=== PATIENT | male | born 1995 | race Caucasian/White ===

== ENCOUNTER 2022-04-04 21:44 | Emergency (ER) | payer MEDICAID, SELFPAY ==
[2022-04-04] VITALS (9 sets, daily range): BP systolic 111–125; BP diastolic 68–77; PULSE 81–94; RESP 22; TEMP 38.3; O2SAT 88–98; BMI 22.9
[2022-04-04] MEDS: 0.9 % SODIUM CHLORIDE 1000 ml 1,000 ML IV (22:41)
[2022-04-04] MEDS: KETOROLAC 30 MG/ML inj IVP (22:45)
[2022-04-04 22:56] LABS: PCR FLU A Negative PCR FLU A (Negative); PCR FLU B Negative PCR FLU B (Negative); PCR RSV Negative PCR RSV (Negative)
[2022-04-04 22:57] LABS: Basophils Percent Auto 0.5 % (0.0-3.0); Hematocrit 38.8 % (37.0-53.0); Lymphocytes Percent Auto 8.3 % (20-44); Mean Corpuscular HGB Conc 36 gm/dL (32-36); Mean Corpuscular Hemoglobin 31 pg (26-34); Mean Corpuscular Volume 85 fL (80-100); Monocytes Percent Auto 23.8 % (0.0-11.0); Neutrophils Percent Auto 66.4 % (42.0-72.0); Platelet Count* 211 K/uL (140-440); RDW Coefficient of Variation % 11.3 % (11.5-15.5); Red Blood Count 4.58 m/uL (4.30-5.90); Slide Review Reflex No; White Blood Count* 4.21 K/uL (4.50-11.00)
[2022-04-04 23:01] LABS: SARS PCR* POSITIVE SARS-CoV-2 (Negative)
[2022-04-04 23:02] LABS: Albumin* 4.3 g/dL (3.3-5.0); Chloride* 105 mmol/L (96-114); Sodium* 135 mmol/L (135-149)
[2022-04-04 23:03] LABS: Potassium* 3.6 mmol/L (3.6-5.1)
[2022-04-04 23:05] LABS: Aspartate Amino Transferase* 28 U/L (12-35); Bilirubin Direct* 0.1 mg/dL (0.0-0.5); Bilirubin Total* 0.7 mg/dL (0.1-1.5); Carbon Dioxide* 22 mmol/L (20-32); Creatinine* 0.7 mg/dL (0.5-1.5); Est. Creatinine Clearance* 160.42; Estimated Glomerular Filt Rate 131 ml/min; Total Protein* 7.1 g/dL (6.0-8.3)
[2022-04-04 23:06] LABS: Alanine Aminotransferase* 19 U/L (4-50); Alkaline Phosphatase* 65 U/L (40-150); Blood Urea Nitrogen* 12 mg/dL (5-24); Calcium* 8.9 mg/dL (8.4-10.6); Glucose* 94 mg/dL (60-115)
[2022-04-04 23:08] LABS: C Reactive Protein* 1.6 mg/dL (0.5-1.0)
[2022-04-04 23:56] LABS: Appearance Urine Clear (Clear); Bilirubin Urine Negative (Negative); Blood Urine Negative (Negative); Color Urine Yellow (Yellow); Glucose Urine Negative (Negative); Ketones Urine 4+ (Negative); Leukocyte Esterase Urine Trace (Negative); Nitrite Urine Negative (Negative); Protein Urine Trace (Negative)
[2022-04-05 00:01] VITALS: BP 117/71
[2022-04-05 00:03] VITALS: PULSE 101; O2SAT 97
[2022-04-05 00:15] VITALS: PULSE 84; O2SAT 97
[2022-04-05 00:25] LABS: Bacteria Urine Few; Mucus Urine Moderate; RBC Urine 0-2 (0-2); Squamous Epithelial Cell Urine Few (None-Few)
[2022-04-05 01:51] LABS: D Dimer Quantitative* < 0.27 ug/ml (0.00-0.50)
--- NOTE | 2022-04-05 10:00 | ED_ITS ---
HPI - General Adult General Chief complaint: Abdominal Pain Stated complaint: Hot/Cold Sweats,Vomiting,Shaking Legs Time Seen by Provider: 04/04/22 22:21 History of Present Illness HPI narrative: 27-year-old young man here with significant other with complaint of a stabbing lower abdominal pain, further questioning reveals that this is more of a lower back pain, chills, headache, tingling into his legs. Noting it is hard to walk. Generally weak. Did take some acetaminophen at 1 point. Has been pushing fluids and experiencing urinary frequency. No hematuria noted. He does note a grandfather and his father with history of kidney stones. No rashes noted. No focal weakness described. No visual disturbance described. He had the 1st injection in COVID vaccine series. Related Data Previous Rx's Medication Instructions Recorded naproxen sodium 550 mg tablet 550 mg PO Q12H PRN pain #15 tabs 04/05/22 Allergies Allergy/AdvReac Type Severity Reaction Status Date / Time No Known Drug Allergies Allergy Verified 04/04/22 21:58 Review of Systems Status of ROS: Reports: 10 or more systems reviewed and unremarkable except as noted in History and below [facility] Social History Smoking Status: Current every day smoker Do you use any of these nicotine containing products: Vaping Products Second hand tobacco smoke exposure: No How often do you have a drink containing alcohol: monthly or less How many standard drinks containing alcohol do you have on a typical day: 5 or 6 How often do you have six or more drinks on one occasion: Less than monthly AUDIT-C Alcohol total score: 4 Non-prescribed substance use: marijuana (any form) service: No Exam Narrative: Exam Narrative: Seems rather uncomfortable. Eyes are injected as if his been crying. He did arrive moaning in apparent discomfort. In busy ER I do try to see him sooner. Skin is warm and dry otherwise. Oropharynx is sticky. Head is atraumatic. Extensive scarring in place of right ear/pinna. Cranial nerves 2-12 look to be intact. Lungs are clear. Heart rate is elevated in a regular rhythm. There is soreness to percussion in the right flank and across the low back. Abdomen with normoactive bowel sounds flat soft and tender across the suprapubic area. I do not appreciate a sense of fullness though. Extremities are well perfused. Sensation appears to be intact. Const: Vital Signs, click to edit/add: Vital Signs - 24 hr 04/04/22 21:58 04/04/22 22:06 04/04/22 22:51 Temperature 100.9 F H Pulse Rate 81 Pulse Rate [Pulse Oximeter] 92 Respiratory Rate 22 Blood Pressure Blood Pressure [Le ft Upper Arm] 111/69 Pulse Oximetry 97 97 98 Oxygen Delivery Me thod Room Air Room Air 04/04/22 23:00 04/04/22 23:01 04/04/22 23:15 Temperature Pulse Rate 87 86 87 Pulse Rate [Pulse Oximeter] Respiratory Rate Blood Pressure 125/77 Blood Pressure [Le ft Upper Arm] Pulse Oximetry 88 91 93 Oxygen Delivery Me thod 04/04/22 23:30 04/04/22 23:31 04/04/22 23:53 Temperature Pulse Rate 94 89 88 Pulse Rate [Pulse Oximeter] Respiratory Rate Blood Pressure 117/68 Blood Pressure [Le ft Upper Arm] Pulse Oximetry 96 96 97 Oxygen Delivery Me thod 04/05/22 00:01 04/05/22 00:03 04/05/22 00:15 Temperature Pulse Rate 101 H 84 Pulse Rate [Pulse Oximeter] Respiratory Rate Blood Pressure 117/71 Blood Pressure [Le ft Upper Arm] Pulse Oximetry 97 97 Oxygen Delivery Me thod Documenting provider has reviewed patient's vital signs: yes Course Vital Signs Vital signs: Initial Vital Signs Temperature 100.9 F H 04/04/22 21:58 Temperature Source Temporal Artery Scan 04/04/22 21:58 Pulse Rate 92 04/04/22 21:58 Pulse Rhythm 04/04/22 21:58 Respiratory Rate 22 04/04/22 21:58 Blood Pressure 111/69 04/04/22 21:58 Blood Pressure Mean 83 04/04/22 21:58 Blood Pressure Position Supine 04/04/22 21:58 Pulse Oximetry 97 04/04/22 21:58 Oxygen Delivery Method 04/04/22 21:58 Vital Signs Temperature 100.9 F H 04/04/22 21:58 Pulse Rate 92 04/04/22 21:58 Respiratory Rate 22 04/04/22 21:58 Blood Pressure 111/69 04/04/22 21:58 Pulse Oximetry 97 04/04/22 21:58 Oxygen Delivery Method 04/04/22 21:58 Temperature 100.9 F H 04/04/22 21:58 Pulse Rate 84 04/05/22 00:15 Respiratory Rate 22 04/04/22 21:58 Blood Pressure 117/71 04/05/22 00:01 Pulse Oximetry 97 04/05/22 00:15 Oxygen Delivery Method 04/04/22 22:06 Medical Decision Making MDM Narrative Medical decision making narrative: Certainly could be UTI or ureteral stone and colic, vascular disruption resulting in lower extremity symptoms, panic attack, myalgias, nonspecific viral process. Did initiate IV. Was given fluids-normal saline, ketorolac and due to intensity of his initial presentation, ordered for fentanyl with concern of ureteral stone and colic in the differential. Labs showed some lymphocytic suppression and this would be consistent with a positive COVID test. I was moving toward CT scan fairly quickly after initial exam but with re-examination I think myalgias are probably the more significant symptom here as well as possibly some degree of panic attack resulting in his lower extremity symptoms that have been described. Urinalysis did show ketones. The chills that were described given short duration of symptoms I think are unlikely to represent urinary tract infection related to kidney stone/ureteral stone. On departure or nearing departure was asking about pain medication he might rec eive. Inquired as to specifics about what he felt might be helpful ?I do not know; you're the doctor he replied. I discussed NSAIDs including naproxen. Overall appeared improved with treatments as above. Lab Data Lab results reviewed: Yes I reviewed the patient's lab results Labs: Lab Results 04/04/22 04/04/22 04/04/22 Range/Units 22:10 22:30 22:30 WBC 4.21 L (4.50-11.00) K/uL RBC 4.58 (4.30-5.90) m/uL Hgb 14.0 (13.5-17.5) gm/dL Hct 38.8 (37.0-53.0) % MCV 85 (80-100) fL MCH 31 (26-34) pg MCHC 36 (32-36) gm/dL RDW Coeff of Asael 11.3 L (11.5-15.5) % Plt Count 211 (140-440) K/uL Neut % (Auto) 66.4 (42.0-72.0) % Lymph % (Auto) 8.3 L (20-44) % [place] % (Auto) 23.8 H (0.0-11.0) % Eos % (Auto) 0.0 (0.0-7.0) % Baso % (Auto) 0.5 (0.0-3.0) % Neut # (Auto) 2.80 (1.7-7.0) K/uL Lymph # (Auto) 0.30 L (0.90-2.90) K/uL [place] # (Auto) 1.00 H (0.00-0.90) K/UL Eos # (Auto) 0.00 (0.00-0.50) K/uL Baso # (Auto) 0.00 (0.00-0.30) K/uL D-Dimer Quant (PE/DVT) < 0.27 (0.00-0.50) ug/ml Sodium (135-149) mmol/L Potassium (3.6-5.1) mmol/L Chloride (96-114) mmol/L Carbon Dioxide (20-32) mmol/L BUN (5-24) mg/dL Creatinine (0.5-1.5) mg/dL Estimated Creat Clear Estimated GFR ml/min Glucose (60-115) mg/dL Calcium (8.4-10.6) mg/dL Total Bilirubin (0.1-1.5) mg/dL Direct Bilirubin (0.0-0.5) mg/dL AST (12-35) U/L ALT (4-50) U/L Alkaline Phosphatase (40-150) U/L C-Reactive Protein (0.5-1.0) mg/dL Total Protein (6.0-8.3) g/dL Albumin (3.3-5.0) g/dL Urine Color (Yellow) Urine Appearance (Clear) Urine pH (5.0-8.5) Ur Specific Alva (1.000-1.030) Urine Protein (Negative) Urine Glucose (UA) (Negative) Urine Ketones (Negative) Urine Blood (Negative) Urine Nitrite (Negative) Urine Bilirubin (Negative) Urine Urobilinogen (0.2-1.0) Ur Leukocyte Esterase (Negative) Urine RBC (0-2) Urine WBC (0-5) Ur Squamous Epith Cells (None-Few) Urine Bacteria (None) Urine Mucus (None) SARS-CoV-2 (PCR) POSITIVE SARS-CoV-2 A (Negative) Influenza Type A (PCR) Negative PCR FLU A (Negative) Influenza Type B (PCR) Negative PCR FLU B (Negative) RSV (PCR) Negative PCR RSV (Negative) 04/04/22 04/04/22 Range/Units 22:30 23:49 WBC (4.50-11.00) K/uL RBC (4.30-5.90) m/uL Hgb (13.5-17.5) gm/dL Hct (37.0-53.0) % MCV (80-100) fL MCH (26-34) pg MCHC (32-36) gm/dL RDW Coeff of Asael (11.5-15.5) % Plt Count (140-440) K/uL Neut % (Auto) (42.0-72.0) % Lymph % (Auto) (20-44) % [place] % (Auto) (0.0-11.0) % Eos % (Auto) (0.0-7.0) % Baso % (Auto) (0.0-3.0) % Neut # (Auto) (1.7-7.0) K/uL Lymph # (Auto) (0.90-2.90) K/uL [place] # (Auto) (0.00-0.90) K/UL Eos # (Auto) (0.00-0.50) K/uL Baso # (Auto) (0.00-0.30) K/uL D-Dimer Quant (PE/DVT) (0.00-0.50) ug/ml Sodium 135 (135-149) mmol/L Potassium 3.6 (3.6-5.1) mmol/L Chloride 105 (96-114) mmol/L Carbon Dioxide 22 (20-32) mmol/L BUN 12 (5-24) mg/dL Creatinine 0.7 (0.5-1.5) mg/dL Estimated Creat Clear 160.42 Estimated GFR 131 ml/min Glucose 94 (60-115) mg/dL Calcium 8.9 (8.4-10.6) mg/dL Total Bilirubin 0.7 (0.1-1.5) mg/dL Direct Bilirubin 0.1 (0.0-0.5) mg/dL AST 28 (12-35) U/L ALT 19 (4-50) U/L Alkaline Phosphatase 65 (40-150) U/L C-Reactive Protein 1.6 H (0.5-1.0) mg/dL Total Protein 7.1 (6.0-8.3) g/dL Albumin 4.3 (3.3-5.0) g/dL Urine Color Yellow (Yellow) Urine Appearance Clear (Clear) Urine pH 7.0 (5.0-8.5) Ur Specific Al[place] 1.020 (1.000-1.030) Urine Protein Trace A (Negative) Urine Glucose (UA) Negative (Negative) Urine Ketones 4+ A (Negative) Urine Blood Negative (Negative) Urine Nitrite Negative (Negative) Urine Bilirubin Negative (Negative) Urine Urobilinogen 1.0 (0.2-1.0) Ur Leukocyte Esterase Trace A (Negative) Urine RBC 0-2 (0-2) Urine WBC 5-10 A (0-5) Ur Squamous Epith Cells Few (None-Few) Urine Bacteria Few A (None) Urine Mucus Moderate A (None) SARS-CoV-2 (PCR) (Negative) Influenza Type A (PCR) (Negative) Influenza Type B (PCR) (Negative) RSV (PCR) (Negative) Discharge Plan Discharge Clinical Impression: COVID-19, Myalgia, Dehydration Patient Disposition: Home w/ Parent or Adult Condition: Improved Additional Instructions: I would focus on hydration. Treating fever and myalgias I think is better accomplished with ibuprofen or even naproxen sodium. Can take up to 800 mg of ibuprofen per dose or up to 500 mg of naproxen 2 times daily. Return for increasing and persistent shortness of breath, inability to control fever, uncontrolled pain. We will be culturing your urine here but I think that the findings are more likely related to dehydration or otherwise poor food intake, than infection. If you are having increased flank pain particularly 1 sided, and see any blood in your urine, that might be an indication of a kidney stone. I would follow up for imaging if still present in about 4 days. 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
== END 2022-04-05 01:07 | disposition home or self-care (01) ==
PROVIDERS: Emergency Provider Family Medicine
DX: U07.1 COVID-19 (principal); M79.10 Myalgia, unspecified site
CPT/HCPCS: 36415; 80048; 80076; 81001; 85025; 85379; 86140; 87086; 87502; 87634; 87635; 99283; 99284; J1885; J7030

== ENCOUNTER 2022-12-06 20:13 | Emergency (ER) | payer OTHER, MEDICAID, SELFPAY ==
[2022-12-06 20:18] VITALS: BP 114/71; PULSE 79; RESP 16; TEMP 36.6; O2SAT 98
--- NOTE | 2022-12-06 20:40 | ED_ITS ---
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 He was slicing some cucumbers when the knife slipped lacerating the tip of his left 4th finger. Bleeding was controlled with direct pressure. He presents for evaluation. Pain is minimal. His tetanus is up-to-date. Related Data Previous Rx's Medication Instructions Recorded naproxen sodium 550 mg tablet 550 mg PO Q12H PRN pain #15 tabs 04/05/22 Allergies Allergy/AdvReac Type Severity Reaction Status Date / Time No Known Drug Allergies Allergy Verified 04/04/22 21:58 Review of Systems Narrative: Review of systems is outlined above otherwise noted to be negative. PFSH PFS Social History Smoking Status: Current every day smoker Do you use any of these nicotine containing products: Vaping Products Second hand tobacco smoke exposure: No How often do you have a drink containing alcohol: monthly or less How many standard drinks containing alcohol do you have on a typical day: 5 or 6 How often do you have six or more drinks on one occasion: Less than monthly AUDIT-C Alcohol total score: 4 Non-prescribed substance use: marijuana (any form) service: No Exam Narrative: Exam Narrative: Vitals noted. Examination is limited to the left upper extremity. He has a flap-type laceration over the tip of the 4th finger. It is not currently bleeding. The flap is fairly thin and comes up to the edge of the fingernail itself. The nail is intact. No other injuries. Const: Vital Signs, click to edit/add: Vital Signs - 24 hr 12/06/22 20:18 Temperature 97.9 F Pulse Rate [Right Pulse Oximeter] 79 Respiratory Rate 16 Blood Pressure [Ri ght Upper Arm] 114/71 Pulse Oximetry 98 Oxygen Delivery Me thod Room Air Course Course ED Course: Patient was seen and evaluated. We discussed options of suturing which would have to go through the nail itself verses just gluing it. I think glue is the best option and should work well. The wound is cleaned and Dermabond applied. It was hemostatic. Normal function of the finger. Vital Signs Vital signs: Initial Vital Signs Temperature 97.9 F 12/06/22 20:18 Temperature Source Temporal Artery Scan 12/06/22 20:18 Pulse Rate 79 12/06/22 20:18 Pulse Rhythm Regular 12/06/22 20:18 Respiratory Rate 16 12/06/22 20:18 Blood Pressure 114/71 12/06/22 20:18 Blood Pressure Mean 85 12/06/22 20:18 Blood Pressure Position Sitting 12/06/22 20:18 Pulse Oximetry 98 12/06/22 20:18 Oxygen Delivery Method Room Air 12/06/22 20:18 Vital Signs Temperature 97.9 F 12/06/22 20:18 Pulse Rate 79 12/06/22 20:18 Respiratory Rate 16 12/06/22 20:18 Blood Pressure 114/71 12/06/22 20:18 Pulse Oximetry 98 12/06/22 20:18 Oxygen Delivery Method Room Air 12/06/22 20:18 Temperature 97.9 F 12/06/22 20:18 Pulse Rate 79 12/06/22 20:18 Respiratory Rate 16 12/06/22 20:18 Blood Pressure 114/71 12/06/22 20:18 Pulse Oximetry 98 12/06/22 20:18 Oxygen Delivery Method Room Air 12/06/22 20:18 Discharge Plan Discharge Clinical Impression: Laceration Patient Disposition: Home, Self-Care Condition: Improved Additional Instructions: Keep wound clean, dry, and protected. Watch for signs of infection. Prescriptions: No Action naproxen sodium 550 mg tablet 550 mg PO Q12H PRN (Reason: pain) Qty: 15 0RF Follow Up/Referrals: Provider,Not a Local [Primary Care Provider] - Stand Alone Forms: MyHealth Info Instructions
== END 2022-12-06 21:18 | disposition home or self-care (01) ==
PROVIDERS: Emergency Provider Family Medicine
DX: S61.215A Laceration without foreign body of left ring finger without damage to nail, initial encounter (principal); W26.0XXA Contact with knife, initial encounter
CPT/HCPCS: 12001; 99281; 99283

== ENCOUNTER 2023-06-25 16:25 | Emergency (ER) | payer MEDICAID, SELFPAY ==
[2023-06-25 16:37] VITALS: BP 135/78; PULSE 106; RESP 20; TEMP 37.3; O2SAT 96
--- NOTE | 2023-06-25 19:52 | ED.GENADULT ---
HPI - General Adult General Date Seen: 06/25/23 Chief complaint: Skin/Abscess/Foreign Body Stated complaint: rectum issue Time Seen by Provider: 06/25/23 19:52 History of Present Illness HPI narrative: 28 yo M presenting to ER with concern for a rectal mass. He is generally healthy. No history of any rectal problems, hemorrhoids, inflammatory bowel disease or other immune system problems. He noted a couple of days ago that he had a small mass palpable just inside the opening of his rectum. He notes that a couple of days ago and he has been worried that it might be something like a general warts so came here to the ER. The lump is not really growing. It is not painful. No tenesmus. No abdominal pain. No fever or chills. No bleeding or purulent drainage. Patient says that he had been checked previously for STDs and had no findings. He is not concerned about other acute STDs. He was worried that since this lump was new it might be a genital wart that he had never noticed before. Related Data Previous Rx's Medication Instructions Recorded naproxen sodium 550 mg tablet 550 mg PO Q12H PRN pain #15 tabs 04/05/22 Allergies Allergy/AdvReac Type Severity Reaction Status Date / Time No Known Drug Allergies Allergy Verified 04/04/22 21:58 [facility] Medical History (Updated 06/25/23 @ 20:19 by Bola Farley RN) No significant past medical history Surgical History (Updated 06/25/23 @ 20:19 by Bola Farley RN) No significant past surgical history Social History Smoking Status: Current every day smoker Do you use any of these nicotine containing products: Vaping Products Second hand tobacco smoke exposure: No How often do you have a drink containing alcohol: monthly or less How many standard drinks containing alcohol do you have on a typical day: 5 or 6 How often do you have six or more drinks on one occasion: Less than monthly AUDIT-C Alcohol total score: 4 Non-prescribed substance use: marijuana (any form) service: No Exam Narrative: Exam Narrative: Constitutional: Appears well-developed and well-nourished. Active. Non-toxic appearing. HENT: Head: Atraumatic. No signs of injury. Nose: No nasal discharge. Mouth/Throat: Mucous membranes are moist. Pharynx is normal. Tonsils symmetric. Uvula midline. Airway patent. Eyes: Conjunctivae normal and EOM are normal. Pupils are equal, round, and reactive to light. Right eye exhibits no discharge. Left eye exhibits no discharge. No icterus. Neck: Normal range of motion. Neck supple. No adenopathy. No stridor. Cardiovascular: Normal rate and regular rhythm. No murmur heard. No murmurs, rubs, or gallops. Brisk capillary refill Pulmonary/Chest: Effort normal. No stridor. No respiratory distress. No wheezes.No rhonchi. No rales. No retractions. Abdominal: Soft. Bowel sounds are normal. No distension. No mass. There is no tenderness. There is no rebound and no guarding. Rectal: Gluteal cleft and external rectum normal. No pilonidal cyst, external hemorrhoid, fissure, or palpable perirectal abscess. Internal digital exam performed. No definite palpable lesions. Anoscopy performed. I inserted the anoscope gently about 3 cm into the patient's rectum and then using direct visualization with bright illumination we gently remove the byproducts pump operator and then gently removed the anoscope. I did visualize a small purplish lesion just inside the anal verge which I think may represent a internal hemorrhoid. No sign of active bleeding. I do not see any whitish lesions to suggest perirectal abscess, or any other sign of condyloma. Musculoskeletal: Normal range of motion. No edema. No tenderness. No deformity. Neurological: Alert. Normal strength. No cranial nerve deficit or sensory deficit. Coordination normal. GCS eye subscore is 4. GCS verbal subscore is 5. GCS motor subscore is 6. Skin: Skin is warm. No rash noted. Const: Vital Signs, click to edit/add: Vital Signs - 24 hr 06/25/23 16:37 06/25/23 20:20 06/25/23 20:21 Temperature 99.2 F 99.2 F 99.2 F Pulse Rate [Pulse Oximeter] 106 H 95 95 Respiratory Rate 20 20 20 Blood Pressure [Ri ght Upper Arm] 135/78 125/74 125/74 Pulse Oximetry 96 96 Oxygen Delivery Me thod Room Air Room Air Course Vital Signs Vital signs: Initial Vital Signs Temperature 99.2 F 06/25/23 16:37 Temperature Source Temporal Artery Scan 06/25/23 16:37 Pulse Rate 106 H 06/25/23 16:37 Pulse Rhythm Regular 06/25/23 16:37 Respiratory Rate 20 06/25/23 16:37 Blood Pressure 135/78 06/25/23 16:37 Blood Pressure Mean 97 06/25/23 16:37 Blood Pressure Position Sitting 06/25/23 16:37 Pulse Oximetry 96 06/25/23 16:37 Oxygen Delivery Method Room Air 06/25/23 16:37 Vital Signs Temperature 99.2 F 06/25/23 16:37 Pulse Rate 106 H 06/25/23 16:37 Respiratory Rate 20 06/25/23 16:37 Blood Pressure 135/78 06/25/23 16:37 Pulse Oximetry 96 06/25/23 16:37 Oxygen Delivery Method Room Air 06/25/23 16:37 Temperature 99.2 F 06/25/23 20:21 Pulse Rate 95 06/25/23 20:21 Respiratory Rate 20 06/25/23 20:21 Blood Pressure 125/74 06/25/23 20:21 Pulse Oximetry 96 06/25/23 20:20 Oxygen Delivery Method Room Air 06/25/23 20:20 Medical Decision Making MDM Narrative Medical decision making narrative: Pleasant, generally healthy 28-year-old male presenting to the ER today because he noticed a lump inside of his rectal opening couple of days ago. Differential here includes external hemorrhoid, internal hemorrhoid, perirectal abscess, pilonidal abscess, condyloma, rectal tumor, among others. External exam is normal. Digital rectal exam unrevealing. Anoscope was performed and does reveal a small purplish lesion there which I think is probably a non thrombosed internal hemorrhoid. There is no tenderness or other findings to suggest proctitis or abscess at this time. Patient is comfortable discharging to home. Discussed precautions for call from monitoring and return to the ER if he does develop any pain or increasing swelling. Questions answered. He declines other STD testing at this time stating that he has no recent new exposure or other concern for other STDs. Discharge Plan Discharge Clinical Impression: Internal hemorrhoid Patient Disposition: Home, Self-Care Condition: Stable Instructions: Hemorrhoids (DC) Additional Instructions: As we discussed, please come back to the ER right away if you have any problems especially rectal bleeding, worsening rectal pain, if the mass is getting larger, or you have other concerns. As we discussed, if this area becomes larger or painful you could also see a surgeon to have it evaluated. You can call [facility] to arrange a surgery evaluation in the outpatient clinic. Prescriptions: No Action naproxen sodium 550 mg tablet 550 mg PO Q12H PRN (Reason: pain) Qty: 15 0RF Follow Up/Referrals: Provider,Not a Local [Primary Care Provider] - Stand Alone Forms: [place] Info Instructions
[2023-06-25 20:20] VITALS: BP 125/74; PULSE 95; RESP 20; TEMP 37.3; O2SAT 96
[2023-06-25 20:21] VITALS: BP 125/74; PULSE 95; RESP 20; TEMP 37.3
== END 2023-06-25 20:21 | disposition home or self-care (01) ==
LOC: ED 20:15
PROVIDERS: Emergency Provider Emergency Medicine
DX: K64.8 Other hemorrhoids (principal)
CPT/HCPCS: 46600; 99282; 99283

== ENCOUNTER 2023-08-09 23:11 | Emergency (ER) | payer MEDICAID, SELFPAY ==
[2023-08-10 00:15] VITALS: BP 135/74; PULSE 89; RESP 20; TEMP 36.8; O2SAT 99
--- NOTE | 2023-08-10 01:07 | ED.GENADULT ---
HPI - General Adult General Chief complaint: Unspecified Complaint, Adult Stated complaint: would like std test Time Seen by Provider: 08/09/23 23:57 History of Present Illness HPI narrative: 28-year-old male presents the emergency department for evaluation of STD screening reports that he has had a little bit of tenderness on the tip of his penis for the past 24 hours, no dysuria or hematuria, no abdominal pain, back pain or fevers. No history of urinary tract infections. Had gonorrhea 2 or 3 years ago. Has a visible spot on the tip of the penis that he would like examined. He did not tell the triage nurse about this, just me. No known trauma or injury. No scrotal pain. Did not try any interventions prior to coming to the ED. States that his past medical history is benign, no major long-term health problems no prescription medications. ROS notable for the symptoms as above only, otherwise denies times 12 systems Related Data Home Medications ?Medication ?Instructions ?Recorded ?Confirmed No Known Home Medications 07/09/23 08/10/23 Allergies Allergy/AdvReac Type Severity Reaction Status Date / Time No Known Drug Allergies Allergy Verified 08/10/23 00:17 [facility] Medical History No significant past medical history Surgical History No significant past surgical history Social History Smoking Status: Current every day smoker Do you use any of these nicotine containing products: Vaping Products Second hand tobacco smoke exposure: No How often do you have a drink containing alcohol: monthly or less How many standard drinks containing alcohol do you have on a typical day: 5 or 6 How often do you have six or more drinks on one occasion: Less than monthly AUDIT-C Alcohol total score: 4 Non-prescribed substance use: marijuana (any form) service: No Exam Const: Vital Signs, click to edit/add: Vital Signs - 24 hr 08/10/23 00:15 Temperature 98.2 F Pulse Rate [Right Pulse Oximeter] 89 Respiratory Rate 20 Blood Pressure [Ri ght Upper Arm] 135/74 Pulse Oximetry 99 Oxygen Delivery Me thod Room Air Common normals: no apparent distress General appearance: comfortable HENMT: Common normals: normocephalic Head and scalp: normocephalic Eye: General eye: normal appearance of both eyes Resp: Common normals: normal respiratory effort and clear to auscultation bilaterally Effort & inspection: able to speak in complete sentences Auscultation: clear to auscultation bilaterally Cardio: Common normals: regular rate, regular rhythm, S1 normal heart sound, S2 normal heart sound and no murmurs Rate: regular rate Rhythm: regular rhythm Heart sounds: S1 normal and S2 normal : Other: 1 mm slightly irritated papule to left urethral meatus at 3:00 a.m.. No chancroid or ulcerated features. No features of balanitis, other lesions on the penis or scrotum. Psych: Common normals: thought process normal Attitude: calm Thought process: normal thought process Attention/concentration: attention grossly intact Skin: Common normals: no rashes or lesions noted Narrative: Other than the penile lesion, no other abnormal appearing lesions. General skin exam: no rashes or lesions noted Course Course ED Course: Urinalysis collected, STD screen will be pending as it does not run overnight. Reassured on the urethral papule, likely a mild irritation and skin process, not likely an STD. Should resolve within 2 weeks, topical barrier ointment encouraged. Follow up with clinic visit if not improving in 2 weeks. Will be notified of STD screen results once these are available. Counseled him that these will be delayed in reporting compared to a clinic visit. Vital Signs Vital signs: Initial Vital Signs Temperature 98.2 F 08/10/23 00:15 Temperature Source Temporal Artery Scan 08/10/23 00:15 Pulse Rate 89 08/10/23 00:15 Respiratory Rate 20 08/10/23 00:15 Blood Pressure 135/74 08/10/23 00:15 Blood Pressure Mean 94 08/10/23 00:15 Blood Pressure Position Sitting 08/10/23 00:15 Pulse Oximetry 99 08/10/23 00:15 Oxygen Delivery Method Room Air 08/10/23 00:15 Vital Signs Temperature 98.2 F 08/10/23 00:15 Pulse Rate 89 08/10/23 00:15 Respiratory Rate 20 08/10/23 00:15 Blood Pressure 135/74 08/10/23 00:15 Pulse Oximetry 99 08/10/23 00:15 Oxygen Delivery Method Room Air 08/10/23 00:15 Temperature 98.2 F 08/10/23 00:15 Pulse Rate 89 08/10/23 00:15 Respiratory Rate 20 08/10/23 00:15 Blood Pressure 135/74 08/10/23 00:15 Pulse Oximetry 99 08/10/23 00:15 Oxygen Delivery Method Room Air 08/10/23 00:15 Medical Decision Making MDM Narrative Medical decision making narrative: Mildly irritated urethral lesion, papular in nature without features of STD, major infection. Suspect small area of irritation. Instructed on diaper rash cream, barrier ointment, Aquaphor other similar agent. Should resolve within 2 weeks. Discussed STD screening. We do not run these in the middle of the night. He will be contacted with his results provided he gives an appropriate phone number. He verbalizes understanding and agreement. HIV, syphilis blood screening, GC chlamydia and urinalysis recommended. Patient will be discharged prior to results of course and will be contacted for follow-up via phone. Topical care of papular lesion discussed. Office follow-up if not improving in 2 weeks Lab Data Lab results reviewed: Yes I reviewed the patient's lab results Lab results narrative: STD screen pending, urinalysis reassuring. Labs: Lab Results 08/10/23 Range/Units 01:00 Urine Color Yellow (Yellow) Urine Appearance Clear (Clear) Urine pH 6.5 (5.0-8.5) Ur Specific [place] <= 1.005 (1.000-1.030) Urine Protein Negative (Negative) Urine Glucose (UA) Negative (Negative) Urine Ketones Trace A (Negative) Urine Blood Negative (Negative) Urine Nitrite Negative (Negative) Urine Bilirubin Negative (Negative) Urine Urobilinogen 0.2 (0.2-1.0) Ur Leukocyte Esterase Negative (Negative) Discharge Plan Discharge Clinical Impression: Screen for STD (sexually transmitted disease), Penile papules Patient Disposition: Home, Self-Care Condition: Stable Instructions: Sexually Transmitted Diseases (ED) Additional Instructions: As we discussed, the small irritated lesion on the tip of your urethra is not of significant concern. This should resolve within 2 weeks. I recommend applying an [id number] barrier ointment such as a diaper rash cream, Aquaphor or something similar 3 times daily. There will be some mild discomfort, it is okay to use Tylenol and/or ibuprofen for this. If it has not resolved in 2 weeks, I would recommend a clinic appointment to further evaluate. As stated, we do not run gonorrhea and chlamydia screenings overnight. Often, this can be expedited more efficiently if you come in to the clinic during daylight hours. Will run the screenings tomorrow and you will be contacted at the phone number given with any positive results. The HIV and syphilis screenings do take a few more days. It may take up to 2 weeks to get your blood results back. Activity Level: No Restrictions Discharge Diet: Regular Prescriptions: No Action No Known Home Medications Follow Up/Referrals: Provider,Not a Local [Primary Care Provider] - Stand Alone Forms: [employer] Info Instructions
[2023-08-10 01:19] LABS: Appearance Urine Clear (Clear); Bilirubin Urine Negative (Negative); Blood Urine Negative (Negative); Color Urine Yellow (Yellow); Glucose Urine Negative (Negative); Ketones Urine Trace (Negative); Leukocyte Esterase Urine Negative (Negative); Nitrite Urine Negative (Negative); Protein Urine Negative (Negative); Specific Gravity Urine <= 1.005 (1.000-1.030); Urobilinogen Urine 0.2 (0.2-1.0); pH Urine 6.5 (5.0-8.5)
[2023-08-10 01:54] VITALS: BP 125/74; PULSE 80; RESP 20; TEMP 36.8; O2SAT 99
[2023-08-10 01:56] VITALS: BP 115/74; PULSE 84; RESP 20; TEMP 36.8
[2023-08-10 02:48] LABS: Chlamydia DNA Amplified* NOT DETECTED (No Detected); GC DNA Amplified* NOT DETECTED (No Detected)
[2023-08-10 02:57] LABS: HIV 1/2/P24 Combo Screen* Negative (Negative)
[2023-08-11 23:02] LABS: Rapid Plasma Reagin (RPR) Non Reactive (Non Reactive)
--- NOTE | 2023-08-12 19:09 | ED.NURSE ---
patient called to verify negative lab results, verified with pt.
== END 2023-08-10 01:56 | disposition home or self-care (01) ==
LOC: ED 08-10 01:14
PROVIDERS: Emergency Provider Family Medicine
DX: R23.8 Other skin changes (principal); Z11.3 Encounter for screening for infections with a predominantly sexual mode of transmission
CPT/HCPCS: 36415; 81003; 86592; 86703; 87491; 87591; 99283

== ENCOUNTER 2024-06-13 12:14 | Outpatient (CLI) | payer OTHER, SELFPAY ==
[2024-06-13 23:54] LABS: Chlamydia DNA Amplified* NOT DETECTED (No Detected); GC DNA Amplified* NOT DETECTED (No Detected)
== END 2024-06-13 12:15 | disposition home or self-care (01) ==
DX: R30.0 Dysuria (principal); Z11.3 Encounter for screening for infections with a predominantly sexual mode of transmission; Z11.4 Encounter for screening for human immunodeficiency virus [HIV]; Z11.59 Encounter for screening for other viral diseases
CPT/HCPCS: 86592; 86703; 86706; 86803; 87340; 87491; 87591